=== PATIENT | female | born 1945 | race Two or more races ===

== ENCOUNTER → 2018-04-19 10:37 | Outpatient (CLI) | payer OTHER | END | disposition home or self-care (01) | LOC: LAB 10:37 | DX: I11.0 Hypertensive heart disease with heart failure (principal); D53.8 Other specified nutritional anemias; N39.0 Urinary tract infection, site not specified; E04.0 Nontoxic diffuse goiter; E11.9 Type 2 diabetes mellitus without complications; E55.9 Vitamin D deficiency, unspecified; N36.2 Urethral caruncle; D64.89 Other specified anemias; E78.49 Other hyperlipidemia; E03.8 Other specified hypothyroidism; I10 Essential (primary) hypertension; C73 Malignant neoplasm of thyroid gland ==

== ENCOUNTER 2018-11-25 06:38 | Outpatient (CLI) | payer OTHER | END 2018-11-25 06:45 | disposition home or self-care (01) | LOC: LAB 06:38 | DX: C73 Malignant neoplasm of thyroid gland (principal); E89.0 Postprocedural hypothyroidism ==

== ENCOUNTER 2018-11-25 07:33 | Outpatient (CLI) | payer OTHER | END 2018-11-25 07:43 | disposition home or self-care (01) | LOC: RAD 07:33 | DX: M06.1 Adult-onset Still's disease (principal); M80.00XA Age-related osteoporosis with current pathological fracture, unspecified site, initial encounter for fracture ==

== ENCOUNTER 2021-08-26 11:45 | Outpatient (CLI) | payer OTHER | END 2021-08-26 12:07 | disposition home or self-care (01) | LOC: SONOGRAMA 11:45 | PROVIDERS: ATTEND Internal Medicine Sports Medicine | DX: C73 Malignant neoplasm of thyroid gland (principal) ==